=== PATIENT | female | born 1990 | race Caucasian/White ===

== ENCOUNTER → 2016-06-19 | Outpatient (CLI) | payer OTHER | LOC: LAB.O 14:16 | PROVIDERS: ATTEND Internal Medicine Endocrinology, Diabetes & Metabolism | DX: E10.29 Type 1 diabetes mellitus with other diabetic kidney complication (principal); E10.40 Type 1 diabetes mellitus with diabetic neuropathy, unspecified; E03.9 Hypothyroidism, unspecified ==

== ENCOUNTER 2017-02-08 17:00 | Emergency (ER) | payer MEDICAID, OTHER ==
--- NOTE | 2017-02-08 17:07 | ED.PDOC ---
History of Present Illness - General Chief Complaint: General Stated Complaint: nausea/vomiting Time Seen by Provider: 02/08/17 17:06 Source: patient, EMS notes reviewed Exam Limitations: no limitations - History of Present Illness Initial Comments: Mary Fernando 26 y/o female with history of DM 1 stated that she had multiple episodes of nausea and vomiting since this am and on arrival at [facility] it subsided .She is on long acting and regular insulin for her diabetes.EMS called and glucose accucheck reading showed high Timing/Duration: 4-6 hours Severity: moderate Improving Factors: nothing Worsening Factors: eating Associated Symptoms: nausea/vomiting Allergies/Adverse Reactions: Allergies Aspirin Allergy (Verified 03/21/13 15:22) Diphenhydramine [From Benadryl] Allergy (Verified 03/21/13 14:47) Home Medications: Ambulatory Orders Insulin Regular (Human) [Novolin R] 01/08/15 Novolin 70/30 (70-30) 100 Unit/ml 01/08/15 Ondansetron Tab [Zofran Tab] 4 mg PO BID PRN #8 tab 01/08/15 Review of Systems - Review of Systems Constitutional: States: no symptoms reported EENTM: States: no symptoms reported Respiratory: States: no symptoms reported Cardiology: States: no symptoms reported Gastrointestinal/Abdominal: States: see HPI Genitourinary: States: no symptoms reported Endocrine: States: see HPI Hematologic/Lymphatic: States: no symptoms reported Past Medical History (General) - Patient Medical History Hx Seizures: No Hx Stroke: No Hx Dementia: No Hx Asthma: No Hx of COPD: No Hx Cardiac Disorders: Yes - heart murmur Hx Congestive Heart Failure: No Hx Pacemaker: No Hx Hypertension: No Hx Thyroid Disease: No Hx Diabetes: Yes - type 1 Hx Renal Disease: No Hx Cancer: No Hx of HIV: No Hx Hepatitis C: No Hx MRSA: No Surgical History: other - ,BTL - Social History Hx Tobacco Use: No Hx Alcohol Use: No Hx Substance Use: No Hx Substance Use Treatment: No Hx Depression: Yes - history Hx Physical Abuse: No Hx Emotional Abuse: No - Female History Hx Last Menstrual Period: 02/01/17 Patient : No Family Medical History - Family History Mother Family History: Unknown Hx Family Diabetes: Yes - brother,cousin Physical Exam - Physical Exam General Appearance: Alert, No apparent distress Eye Exam: bilateral normal Ears, Nose, Throat: hearing grossly normal, normal ENT inspection, normal pharynx Neck: non-tender, supple Respiratory: lungs clear, normal breath sounds Cardiovascular/Chest: normal peripheral pulses, regular rate, rhythm, tachycardia - heart rate 123 Gastrointestinal/Abdominal: normal bowel sounds, non tender, soft, no organomegaly Extremity: normal inspection, no pedal edema, no calf tenderness Neurologic: no motor/sensory deficits, alert, oriented x 3 Progress - Progress Progress: 02/09/17 01:13 Vital Signs - 8 hr 02/08/17 02/08/17 02/08/17 19:26 20:00 20:30 Pulse Rate [ 124 H 118 H 108 H moniotr] Respiratory 20 20 Rate Blood Pressure 135/73 127/67 116/66 [Left Arm] 02/08/17 02/09/17 23:00 00:05 Pulse Rate [ 108 H 98 H moniotr] Respiratory 18 18 Rate Blood Pressure 134/80 114/57 [Left Arm] 02/09/17 01:14 No further nausea /vomiting since she was in the emergency room able to tolerate liquid and sandwich - Results/Orders Results/Orders: Laboratory Tests 02/08/17 02/08/17 02/08/17 17:13 17:13 17:13 WBC 7.7 RBC 5.04 Hgb 14.3 Hct 46.6 MCV 92.4 MCH 28.4 MCHC 30.7 L RDW 15.5 H Plt Count 248 MPV 11.8 H Absolute Neuts (auto) 5.80 Absolute Lymphs (auto) 1.30 Absolute Monos (auto) 0.50 Absolute Eos (auto) 0.00 Absolute Basos (auto) 0.10 Neutrophils % 74.6 Lymphocytes % 17.3 L Monocytes % 6.7 Eosinophils % 0.3 L Basophils % 1.1 Sodium 132 L Potassium 4.7 Chloride 94 L Carbon Dioxide 14 L* Anion Gap 28.7 H BUN 10 Creatinine 0.96 BUN/Creatinine Ratio 10.4 POC Glucose Random Glucose 666 H* Serum Osmolality 295.1 H Calcium 9.1 Total Bilirubin 1.3 H AST 23 ALT 19 Alkaline Phosphatase 107 Troponin I < 0.02 Serum Total Protein 7.3 Albumin 3.8 Globulin 3.5 Albumin/Globulin Ratio 1.1 Urine Color Urine Appearance Urine pH Ur Specific [place] Urine Protein Urine Glucose (UA) Urine Ketones Urine Blood Urine Nitrite Urine Bilirubin Urine Urobilinogen Ur Leukocyte Esterase Urine RBC Urine WBC Ur Epithelial Cells Urine Bacteria Urine HCG, Qual Urine Opiates Screen Urine Barbiturates Ur Phencyclidine Scrn U Amphetamin/Meth Scrn U Benzodiazepines Scrn U Cocaine Metab Screen U Cannabinoids Screen 02/08/17 02/08/17 02/08/17 17:18 17:35 17:35 WBC RBC Hgb Hct MCV MCH MCHC RDW Plt Count MPV Absolute Neuts (auto) Absolute Lymphs (auto) Absolute Monos (auto) Absolute Eos (auto) Absolute Basos (auto) Neutrophils % Lymphocytes % Monocytes % Eosinophils % Basophils % Sodium Potassium Chloride Carbon Dioxide Anion Gap BUN Creatinine BUN/Creatinine Ratio POC Glucose 400 H Random Glucose Serum Osmolality Calcium Total Bilirubin AST ALT Alkaline Phosphatase Troponin I Serum Total Protein Albumin Globulin Albumin/Globulin Ratio Urine Color Yellow Urine Appearance Clear Urine pH 5.0 Ur Specific [place] 1.010 Urine Protein Negative Urine Glucose (UA) >=1000 H Urine Ketones >=160 Urine Blood Small H Urine Nitrite Negative Urine Bilirubin Negative Urine Urobilinogen 0.2 Ur Leukocyte Esterase Negative Urine RBC 0-1 Urine WBC 1-3 Ur Epithelial Cells 1-3 Urine Bacteria 0 Urine HCG, Qual Negative Urine Opiates Screen Urine Barbiturates Ur Phencyclidine Scrn U Amphetamin/Meth Scrn U Benzodiazepines Scrn U Cocaine Metab Screen U Cannabinoids Screen 02/08/17 02/08/17 02/08/17 17:35 20:00 22:00 WBC RBC Hgb Hct MCV MCH MCHC RDW Plt Count MPV Absolute Neuts (auto) Absolute Lymphs (auto) Absolute Monos (auto) Absolute Eos (auto) Absolute Basos (auto) Neutrophils % Lymphocytes % Monocytes % Eosinophils % Basophils % Sodium 134 L Potassium 3.8 Chloride 103 Carbon Dioxide 11 L* Anion Gap 23.8 H BUN 7 Creatinine 0.74 BUN/Creatinine Ratio 9.5 L POC Glucose 290 H Random Glucose 398 H D Serum Osmolality 283.2 Calcium 8.5 Total Bilirubin AST ALT Alkaline Phosphatase Troponin I Serum Total Protein Albumin Globulin Albumin/Globulin Ratio Urine Color Urine Appearance Urine pH Ur Specific [place] Urine Protein Urine Glucose (UA) Urine Ketones Urine Blood Urine Nitrite Urine Bilirubin Urine Urobilinogen Ur Leukocyte Esterase Urine RBC Urine WBC Ur Epithelial Cells Urine Bacteria Urine HCG, Qual Urine Opiates Screen Negative Urine Barbiturates Negative Ur Phencyclidine Scrn Negative U Amphetamin/Meth Scrn Negative U Benzodiazepines Scrn Negative U Cocaine Metab Screen Negative U Cannabinoids Screen Negative 02/08/17 02/09/17 22:55 00:50 WBC RBC Hgb Hct MCV MCH MCHC RDW Plt Count MPV Absolute Neuts (auto) Absolute Lymphs (auto) Absolute Monos (auto) Absolute Eos (auto) Absolute Basos (auto) Neutrophils % Lymphocytes % Monocytes % Eosinophils % Basophils % Sodium 136 135 Potassium 3.4 L 3.1 L Chloride 106 107 Carbon Dioxide 20 L D 22 Anion Gap 13.4 9.1 L BUN 6 L 6 L Creatinine 0.61 0.51 L BUN/Creatinine Ratio 9.8 L 11.8 POC Glucose Random Glucose 292 H 235 H Serum Osmolality 280.3 275.3 Calcium 8.6 8.3 L Total Bilirubin AST ALT Alkaline Phosphatase Troponin I Serum Total Protein Albumin Globulin Albumin/Globulin Ratio Urine Color Urine Appearance Urine pH Ur Specific [place] Urine Protein Urine Glucose (UA) Urine Ketones Urine Blood Urine Nitrite Urine Bilirubin Urine Urobilinogen Ur Leukocyte Esterase Urine RBC Urine WBC Ur Epithelial Cells Urine Bacteria Urine HCG, Qual Urine Opiates Screen Urine Barbiturates Ur Phencyclidine Scrn U Amphetamin/Meth Scrn U Benzodiazepines Scrn U Cocaine Metab Screen U Cannabinoids Screen - EKG/XRAY/CT EKG: Sinus, Tachy, no ST T wave changes Comments: heart rate 125;left atrial enlargement Departure - Departure Clinical Impression: Ketoacidosis, diabetic, no coma, insulin dependent Time of Disposition: :17 Disposition: Discharge to Home or Self Care Condition: Good Departure Forms: ED Discharge - Pt. Copy, Patient Portal Self Enrollment Instructions: DI for Diabetic Ketoacidosis, Diabetic Ketoacidosis Diet: diabetic diet Referrals: Kannan Saucedo MD [Primary Care Provider] - 1-2 Weeks Home Medications: Ambulatory Orders Insulin Regular (Human) [Novolin R] 01/08/15 Novolin 70/30 (70-30) 100 Unit/ml 01/08/15 Ondansetron Tab [Zofran Tab] 4 mg PO BID PRN #8 tab 01/08/15 Additional Instructions: Continue with insulin regimen;Return to emergency room as needed
[2017-02-08 17:15] VITALS: TEMP 99.1; O2SAT 98
[2017-02-08] MEDS ORDERED: SODIUM CHLORIDE 0.9% 1000ML 1,000 ML ONE (17:26)
[2017-02-08] MEDS: SODIUM CHLORIDE 0.9% 1000ML 1,000 ML IVS ONE (17:41)
[2017-02-08] MEDS: INSULIN, REG.(HUMAN) 100 U/ML VIAL IV ONE (18:13)
[2017-02-08] MEDS ORDERED: SODIUM CHL 0.9% 250ML (AVIVA) 250 ML IVPB ONE (18:49)
[2017-02-08] MEDS: INSULIN, REG.(HUMAN) 250 UNITS in SODIUM CHL 0.9% 250ML (AVIVA) 247.5 ML IVPB SCH ×2 (18:54)
[2017-02-08] MEDS: KCL 10 MEQ/D5 1/2NS 1,000 ML IVS PRN (18:59)
[2017-02-08] MEDS: ACETAMINOPHEN 500 MG TAB PO ONE (19:18)
[2017-02-08] MEDS: ONDANSETRON ODT 8 MG TAB SL ONE (21:34)
[2017-02-08] MEDS: INSULIN,ISOP(HUMAN(NPH) 100 UNITS/ML PEN SUBCU ONE (23:34)
[2017-02-08] MEDS: POTASSIUM CHLORIDE 20 MEQ TAB PO ONE (23:34)
[2017-02-08] MEDS: DEX 5% W/NACL 0.45% 1000ML 1,000 ML IVS PRN (23:35)
[2017-02-09 01:30] VITALS: BP 115/66
== END 2017-02-09 01:30 | disposition home or self-care (01) ==
LOC: ER 17:00
DX: E10.10 Type 1 diabetes mellitus with ketoacidosis without coma (principal); R01.1 Cardiac murmur, unspecified; Z79.4 Long term (current) use of insulin; Z88.6 Allergy status to analgesic agent; Z88.8 Allergy status to other drugs, medicaments and biological substances; I51.7 Cardiomegaly
CPT/HCPCS: 36415; 36416; 80048; 80053; 80307; 81001; 81025; 82948; 84484; 85025; 93005; J1815; J7030; J7799

== ENCOUNTER 2017-02-09 12:04 | Inpatient (IN) | payer MEDICAID ==
--- NOTE | 2017-02-09 12:26 | ED.PDOC ---
History of Present Illness - General Chief Complaint: Diabetic Complaint Stated Complaint: HIGH BLOOD SUGAR AT HOME, SEEN LAST NIGHT FOR SAME Time Seen by Provider: 02/09/17 12:06 Source: patient, RN notes reviewed, Vital Signs reviewed Exam Limitations: no limitations - History of Present Illness Initial Comments: Patient returns to ER with c/o high blood sugar and not feeling well. She was in the ER last night with the same complaints and was discharged @ ~01:30 this morning. Prior to her discharge she was given both her long acting and immediate release insulin. Reports she started feeling bad again about 11am. She did not take any insulin because her sister took it with her to [place]. She reports she has not been on her long acting insulin for the past 6 months due to financial issues and has just been controlling her blood sugar by buying generic insulin. She is c/o headache, neck pain and upper back pain but reports this is typical for when her blood sugar is elevated. Timing/Duration: 1-3 hours Severity: moderate Improving Factors: medication - insulin but has not taken any Worsening Factors: nothing Associated Symptoms: headaches, malaise, weakness Allergies/Adverse Reactions: Allergies Aspirin Allergy (Verified 02/09/17 12:07) Diphenhydramine [From Benadryl] Allergy (Verified 02/09/17 12:07) Home Medications: Ambulatory Orders Insulin Regular (Human) [Novolin R] 01/08/15 Novolin 70/30 (70-30) 100 Unit/ml 01/08/15 Ondansetron Tab [Zofran Tab] 4 mg PO BID PRN #8 tab 01/08/15 Review of Systems - Review of Systems Constitutional: States: malaise, weakness. Denies: chills, fever EENTM: States: no symptoms reported Respiratory: States: no symptoms reported Cardiology: States: palpitations Gastrointestinal/Abdominal: States: no symptoms reported Musculoskeletal: States: see HPI, back pain, neck pain Skin: States: no symptoms reported Neurological: States: see HPI, headache Endocrine: States: no symptoms reported All other Systems: No Change from Baseline Past Medical History (General) - Patient Medical History Hx Seizures: No Hx Stroke: No Hx Dementia: No Hx Asthma: No Hx of COPD: No Hx Cardiac Disorders: No Hx Congestive Heart Failure: No Hx Pacemaker: No Hx Hypertension: No Hx Thyroid Disease: No Hx Diabetes: Yes - INSULIN DEPENDENT Hx Gastroesophageal Reflux: No Hx Renal Disease: No Hx Cancer: No Hx of HIV: No Hx Hepatitis C: No Hx MRSA: No - Vaccination History Hx Tetanus, Diphtheria Vaccination: Yes Hx Influenza Vaccination: No Hx Pneumococcal Vaccination: No Immunizations Up to Date: No - Social History Hx Tobacco Use: No Hx Chewing Tobacco Use: No Hx Alcohol Use: No Hx Substance Use: No Hx Substance Use Treatment: No Hx Depression: No Feels Threatened In Home Enviroment: No Feels Threatened In a Relationship: No Hx Physical Abuse: No Hx Emotional Abuse: No Hx Suspected Abuse: No - Female History Patient is a Female of Child Bearing Age (10 -59 yrs old): Yes Hx Last Menstrual Period: 02/01/17 Patient : No Expected Date of Delivery:: 09/05/15 Family Medical History - Family History Mother Family History: Unknown Living Status: Unknown Hx Family Asthma: No Hx Family Diabetes: Yes - brother,cousin Physical Exam - Physical Exam General Appearance: Alert, Comfortable, No apparent distress, Well Developed, Well Groomed, Well Hydrated, Well Nourished Neck: supple, normal inspection Respiratory: lungs clear, normal breath sounds, no respiratory distress, no accessory muscle use Cardiovascular/Chest: regular rate, rhythm, no gallop, no murmur Gastrointestinal/Abdominal: normal bowel sounds, soft, no organomegaly, no pulsatile mass, tenderness - Mild, diffuse tenderness w/o guarding or rebound Extremity: normal range of motion, normal inspection Neurologic: alert, normal mood/affect, oriented x 3 Skin Exam: normal color, warm/dry Comments: Vital Signs 02/09/17 12:07 Temperature 99.2 F Pulse Rate [ 130 H Left Superficial Temporal] Respiratory 22 Rate Blood Pressure 125/75 [Left Arm] O2 Sat by Pulse 100 Oximetry Progress - Progress Progress: 02/09/17 14:34 Discussed patient with Suzette Nova NP - will admit to hospital for DKA - Results/Orders Results/Orders: Laboratory Tests 02/09/17 02/09/17 02/09/17 11:55 11:55 13:48 Sodium 135 Potassium 4.9 Chloride 99 L Carbon Dioxide 13 L* D Anion Gap 27.9 H BUN 8 Creatinine 0.85 BUN/Creatinine Ratio 9.4 L POC Glucose > 400 H* D Random Glucose 532 H* Cancelled Serum Osmolality 292.5 Calcium 9.4 Serum Ketones Small 02/09/17 13:53 Sodium 133 L Potassium 5.2 H Chloride 100 L Carbon Dioxide 8 L* D Anion Gap 30.2 H BUN 8 Creatinine 0.99 BUN/Creatinine Ratio 8.1 L POC Glucose Random Glucose 603 H* Serum Osmolality 292.9 Calcium 9.1 Serum Ketones Departure - Departure Clinical Impression: Ketoacidosis, diabetic, no coma, insulin dependent Time of Disposition: 14:34 Disposition: Admit Patient Condition: Poor Departure Forms: ED Discharge - Pt. Copy, Patient Portal Self Enrollment Referrals: Kannan Saucedo MD [Primary Care Provider] - 1-2 Weeks Home Medications: Ambulatory Orders Insulin Regular (Human) [Novolin R] 01/08/15 Novolin 70/30 (70-30) 100 Unit/ml 01/08/15 Ondansetron Tab [Zofran Tab] 4 mg PO BID PRN #8 tab 01/08/15 Decision To Admit - Decistion To Admit Decision to Admit Reason: Admit from ER - DKA Decision to Admit Date: 02/09/17 Decision to Admit Time: 14:33
[2017-02-09] MEDS ORDERED: INSULIN, REG.(HUMAN) 100 U/ML VIAL IV ONE (12:43)
[2017-02-09] MEDS ORDERED: SODIUM CHLORIDE 0.9% 1000ML 1,000 ML IVS ONE ×2 (12:44→16:06)
[2017-02-09] MEDS ORDERED: SODIUM CHL 0.9% 250ML (AVIVA) 250 ML IVPB ONE (12:51)
[2017-02-09] MEDS ORDERED: INSULIN, REG.(HUMAN) 100 U/ML VIAL ONE (12:52)
[2017-02-09] MEDS ORDERED: INSULIN, REG.(HUMAN) 250 UNITS in SODIUM CHL 0.9% 250ML (AVIVA) 247.5 ML IVPB SCH ×2 (13:00)
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
[2017-02-09] MEDS ORDERED: KCL 20 MEQ/NS 1,000 ML IVS PRN (17:22)
[2017-02-09] MEDS ORDERED: ACETAMINOPHEN 325 MG TAB PO PRN (17:22)
[2017-02-09] MEDS ORDERED: ACETAMINOPHEN SUPPOSITORY 650 MG PR PRN (17:22)
[2017-02-09] MEDS ORDERED: SODIUM CHLORIDE 0.9% (FLUSH) 10 ML SYG IV PRN (17:22)
[2017-02-09] MEDS ORDERED: IV SET AND CAP CHANGE INJ INJ SCH (17:30)
[2017-02-09] MEDS ORDERED: PANTOPRAZOLE SODIUM IV 40 MG VIAL IV SCH (17:30)
[2017-02-09] MEDS ORDERED: KCL 20MEQ/0.45% NS 1,000 ML IVS PRN (18:15)
[2017-02-09] MEDS ORDERED: KCL 20MEQ/0.45% NS 1,000 ML IVS ONE (18:32)
[2017-02-09] MEDS: INSULIN, REG.(HUMAN) 250 UNITS in SODIUM CHL 0.9% 250ML (AVIVA) 247.5 ML IVPB SCH ×2 (18:44)
[2017-02-09] MEDS ORDERED: KCL 20MEQ/D5 1/2NS 1,000 ML IVS ONE (19:39)
[2017-02-09] MEDS ORDERED: KCL 20MEQ/D5 1/2NS 1,000 ML IVS PRN (19:40)
[2017-02-09] MEDS ORDERED: MAGNESIUM SULFATE PREMIX 2GM 2 GM in PREMIX BAG 1 BAG IVPB ONE (19:41)
[2017-02-09] MEDS ORDERED: MAGNESIUM SULFATE PREMIX 2GM 50 ML IVPB ONE (20:12)
[2017-02-09] MEDS: SODIUM CHLORIDE 0.9% 1000ML 1,000 ML IVS PRN ×3 (21:05→23:55)
[2017-02-09] MEDS: ONDANSETRON INJ 4 MG/2 ML VIAL IV PRN (21:40)
[2017-02-09] MEDS ORDERED: DEXTROSE 50% 25 GM/50 ML SYG IV PRN (23:37)
[2017-02-09] MEDS ORDERED: GLUCAGON INJ 1 MG VIAL SUBCU PRN (23:37)
[2017-02-09] MEDS: HYDROcodone 5MG/APAP 325MG 1 EA TAB PO PRN (23:56)
[2017-02-09] MEDS: INSULIN LISPRO 100 UNITS/ML PEN SUBCU SCH (23:58)
[2017-02-10] MEDS: INSULIN LISPRO 100 UNITS/ML PEN SUBCU SCH ×6 (01:37→20:02)
[2017-02-10] MEDS: ONDANSETRON INJ 4 MG/2 ML VIAL IV PRN (03:23)
[2017-02-10] MEDS: HYDROcodone 5MG/APAP 325MG 1 EA TAB PO PRN (03:47)
[2017-02-10] MEDS ORDERED: KCL 20 MEQ/NS 1,000 ML IVS ONE (04:07)
[2017-02-10] MEDS ORDERED: KCL 20 MEQ/NS 1,000 ML IVS PRN (04:09)
[2017-02-10] MEDS ORDERED: PROMETHAZINE HCL INJ 25 MG/ML VIAL ONE (06:48)
[2017-02-10] MEDS ORDERED: SODIUM CHLORIDE 0.9% 50ML 50 ML ONE (06:48)
[2017-02-10] MEDS ORDERED: PROMETHAZINE HCL INJ 25 MG in SODIUM CHLORIDE 0.9% 50ML 50 ML IVPB PRN (06:49)
[2017-02-10] MEDS: PROMETHAZINE HCL INJ 25 MG in SODIUM CHLORIDE 0.9% 50ML 50 ML IVPB PRN (06:53)
[2017-02-10] MEDS ORDERED: INSULIN, REG.(HUMAN) 100 U/ML VIAL ONE ×3 (06:53→19:32)
[2017-02-10] MEDS ORDERED: SODIUM CHL 0.9% 250ML (AVIVA) 250 ML IVPB ONE ×3 (06:53→19:32)
[2017-02-10] MEDS: SODIUM CHLORIDE 0.9% 1000ML 1,000 ML IVS PRN ×9 (06:54→20:39)
--- NOTE | 2017-02-10 07:04 | PCM.CORE ---
Physician DVT/VTE - Prophylaxis Currently: Patient already on anticoagulation therapy - Nurse DVT Assessment & Total Each Risk Factor is 1 Point: Obesity (BMI >25) DVT Assessment Score: 1 - 0-1 Low Risk Treatments: Early Ambulation, Low Risk no further treatment or intervention needed - 2 Moderate Risk Treatments: Sequential Compression Device
[2017-02-10] MEDS: INSULIN, REG.(HUMAN) 250 UNITS in SODIUM CHL 0.9% 250ML (AVIVA) 247.5 ML IVPB SCH ×6 (07:19→19:47)
[2017-02-10] MEDS ORDERED: ENOXAPARIN SODIUM 40 MG/0.4 ML SYG SUBCU SCH (07:30)
[2017-02-10] MEDS ORDERED: KCL 20MEQ/0.45% NS 1,000 ML IVS PRN (09:50)
--- NOTE | 2017-02-10 11:30 | PN ---
SUPERVISING PHYSICIAN: Javad Beltran MD DATE: 02/10/17 SUBJECTIVE: The patient is lying in her hospital bed. She continues to be lethargic. Her mother is at the bedside. Earlier this morning, she was awake and alert and asking for something to drink. She did have one bout of vomiting with it. She does continue to have complaints of nausea at times, but otherwise the patient has been mostly sleeping. OBJECTIVE: VITAL SIGNS: Afebrile. Heart rate 123. Blood pressure 120/79. Respiratory rate 30. O2 saturation 100% on room air. LUNGS: She is tachypneic, but her lungs clear to auscultation bilaterally. CARDIAC: Tachycardic rate and regular rhythm. ABDOMEN: Soft, nondistended, nontender. Bowel sounds are positive. EXTREMITIES: There is a trace amount of edema to her bilateral lower extremities. NEUROLOGIC: She is lethargic. She opens her eyes. She can answer some simple questions appropriately and she is oriented times 3 when she does awaken. LABORATORY: WBC 14.1, hemoglobin 13.4, hematocrit 43.3, neutrophils 88.3%. Overnight, her sodium was 137 and her carbon dioxide did get up as high as 12, but it is back down to 5 at this time. Glucoses run between 494 and now 252. She shows a moderate amount of serum ketones. Magnesium 1.9. All other labs and films have been reviewed via the EMR. ASSESSMENT: 1. Diabetic ketoacidosis. 2. Diabetes mellitus, type 1. 3. Decreased level of consciousness, most likely due to #1. 4. Dehydration related to #1. 5. Electrolyte imbalanced related to #1. PLAN: We will continue on present supportive care. She will continue to get multiple boluses of fluids as well as staying on the insulin drip until her ketones normalize and her heart rate comes down. I have spoken to the patient' s mother at length about her living situation and our school library media program director, Bella Begum, is going to discuss some options with her. We will continue with the q.4h. BMPs with serum ketones. Hopefully in the next 24 hours we can get her off the insulin drip. At some point, I would like to get her started back on her long-acting insulin. The mother also let me know that she has a recent history of an ulcer, so she will need followup with a GI doctor. I will also send her home on some Protonix until she can get into a GI physician. Otherwise , we will continue to monitor the patient closely and follow as needed. Dr. Beltran is the collaborating physician and available for consultation. [facility][id number] [facility]
[2017-02-10] MEDS ORDERED: KCL 20MEQ/D5 1/2NS 1,000 ML IVS ONE (13:11)
[2017-02-10] MEDS: KCL 20MEQ/D5 1/2NS 1,000 ML IVS PRN ×3 (13:16→23:49)
[2017-02-10] MEDS ORDERED: PANTOPRAZOLE SODIUM IV 40 MG VIAL ONE (19:32)
[2017-02-10] MEDS: PANTOPRAZOLE SODIUM IV 40 MG VIAL IV SCH (20:01)
[2017-02-11] MEDS ORDERED: SODIUM CHL 0.9% 250ML (AVIVA) 250 ML IVPB ONE (07:06)
[2017-02-11] MEDS ORDERED: INSULIN, REG.(HUMAN) 100 U/ML VIAL ONE (07:07)
[2017-02-11] MEDS: INSULIN, REG.(HUMAN) 250 UNITS in SODIUM CHL 0.9% 250ML (AVIVA) 247.5 ML IVPB SCH ×2 (07:11)
[2017-02-11] MEDS: KCL 20MEQ/D5 1/2NS 1,000 ML IVS PRN (07:13)
[2017-02-11] MEDS: HYDROcodone 5MG/APAP 325MG 1 EA TAB PO PRN ×2 (07:15→12:52)
[2017-02-11] MEDS: INSULIN LISPRO 100 UNITS/ML PEN SUBCU SCH ×4 (08:17→20:24)
[2017-02-11] MEDS: ENOXAPARIN SODIUM 40 MG/0.4 ML SYG SUBCU SCH (09:10)
[2017-02-11] MEDS ORDERED: INSULIN DETEMIR 100 UNITS/ML PEN SUBCU ONE (10:52)
[2017-02-11] MEDS ORDERED: FUROSEMIDE INJ 20 MG/2 ML VIAL IV ONE (10:56)
[2017-02-11] MEDS: ESCITALOPRAM 10 MG TAB PO SCH (11:49)
[2017-02-11] MEDS ORDERED: POTASSIUM CHLORIDE 20 MEQ TAB ONE (11:53)
--- NOTE | 2017-02-11 12:02 | PN ---
SUPERVISING PHYSICIAN: Javad Beltran MD DATE: 02/11/17 SUBJECTIVE: The patient is sitting up in bed. She is much more alert and responsive today. She denies any shortness of breath, nausea, vomiting, or chest pain. She complains of some puffiness, especially in her hands and feet. OBJECTIVE: VITAL SIGNS: Afebrile. Heart rate 105. Blood pressure 131/85. Respiratory rate 18. O2 saturation 99% on room air. HEENT: Oropharynx is clear. Oral mucous membranes are moist. She does have quite a bit of eyelid edema. LUNGS: Clear to auscultation bilaterally. There are a few scattered crackles in the upper right lobe, but very minimal. ABDOMEN: Soft, nondistended, nontender. Bowel sounds are positive. EXTREMITIES: She does have +1 edema to both her hands and her feet bilaterally. Pulses are palpable and strong at +2. NEUROLOGIC: Awake, alert and oriented times three. LABORATORY: WBC down to 8.8, hemoglobin 12.1, hematocrit 37.4. Neutrophils normal at 76.5%. Blood sugars while on the insulin drip over the last 24 hours have been as high as 233, but for the most part in the last 12 hours have been 130s to 150s. Chemistries show sodium 135, potassium 3.3, chloride 111, carbon dioxide is 18, up from 13 yesterday afternoon. Creatinine 0.59, BUN less than 5. Random glucose on chemistries today was 125. Serum osmolality 267.8. Calcium 7.9. Serum ketones at 9:25 this morning are negative. Throughout the night, there was a small amount. All other labs and films have been reviewed via the EMR. ASSESSMENT: 1. Diabetic ketoacidosis on admission, now resolved. 2. Diabetes mellitus, type 1, poorly controlled with hemoglobin A1c of 12.1. 3. Decreased level of consciousness, most likely due to diabetic ketoacidosis that is now resolved. 4. Dehydration related to diabetic ketoacidosis, now resolved. 5. Electrolyte imbalanced related to diabetic ketoacidosis. She continues with some hypokalemia and hypomagnesemia that will be corrected. 6. History of depression. PLAN: We will continue present supportive care. Since her ketones are negative , I have discontinued her insulin drip. She will be placed on q.4h. sliding scale insulin. I have given her her usual dose of long-acting insulin, which is 42 units and that will be started routine tomorrow evening. Her IV fluids have been discontinued. I will repeat magnesium from this morning as she has had magnesium replacements over the last couple of days, so I will check that again. I have given her some oral potassium as well as 20 mg of Lasix. We will also do bladder training this afternoon to try to get her catheter removed. I have started her on a low dose of Lexapro as she had been on that in the past and asked that be re-started. We will give her a couple of days of 10 mg of Lexapro and increase Lexapro to 20 mg on discharge. She will also need some Protonix on discharge due to previous history of gastric ulcer. I will order routine labs in the morning and at some point we will need to change her sliding scale to a.c. and h.s. Hopefully she can be discharged in the next day or two with her prescription of long-acting insulin, Protonix and Lexapro. Dr. Beltran is the collaborating physician and available for consultation. . #[id number] [facility]
[2017-02-11] MEDS: ONDANSETRON INJ 4 MG/2 ML VIAL IV PRN (16:59)
[2017-02-11] MEDS ORDERED: MAGNESIUM SULFATE PREMIX 2GM 2 GM in PREMIX BAG 1 BAG IVPB ONE (19:09)
[2017-02-11] MEDS ORDERED: MAGNESIUM SULFATE PREMIX 2GM 50 ML IVPB ONE (19:56)
[2017-02-11] MEDS ORDERED: SODIUM CHLORIDE 0.9% 50ML 50 ML ONE (21:54)
[2017-02-11] MEDS ORDERED: PROMETHAZINE HCL INJ 25 MG/ML VIAL ONE (21:54)
[2017-02-11] MEDS: PANTOPRAZOLE SODIUM IV 40 MG VIAL IV SCH (22:11)
[2017-02-11] MEDS: PROMETHAZINE HCL INJ 25 MG in SODIUM CHLORIDE 0.9% 50ML 50 ML IVPB PRN (22:12)
[2017-02-12] MEDS: INSULIN LISPRO 100 UNITS/ML PEN SUBCU SCH (01:01)
[2017-02-12] MEDS: ONDANSETRON INJ 4 MG/2 ML VIAL IV PRN (06:25)
[2017-02-12] MEDS: HYDROcodone 5MG/APAP 325MG 1 EA TAB PO PRN (06:25)
[2017-02-12] MEDS ORDERED: POTASSIUM CHLORIDE 20 MEQ TAB ONE ×2 (09:19→09:46)
[2017-02-12] MEDS: ESCITALOPRAM 10 MG TAB PO SCH (09:34)
[2017-02-12] MEDS: ENOXAPARIN SODIUM 40 MG/0.4 ML SYG SUBCU SCH (09:35)
[2017-02-12] MEDS ORDERED: POTASSIUM CHLORIDE 20 MEQ TAB PO ONE (10:52)
[2017-02-12 11:05] VITALS: O2SAT 96
[2017-02-12] MEDS ORDERED: PANTOPRAZOLE SODIUM TAB 40 MG PO SCH (11:30)
[2017-02-12] MEDS ORDERED: INSULIN LISPRO 100 UNITS/ML PEN SUBCU SCH (11:30)
[2017-02-12] MEDS ORDERED: FLUCONAZOLE 150 MG TAB PO ONE (12:05)
[2017-02-12 14:48] VITALS: BP 124/84; TEMP 97.3
[2017-02-12] MEDS ORDERED: INSULIN DETEMIR 100 UNITS/ML PEN SUBCU SCH ×2 (21:00)
--- NOTE | 2017-02-16 15:06 | DS ---
SUPERVISING PHYSICIAN: Javad Beltran MD DISCHARGE DIAGNOSIS: 1. Diabetic ketoacidosis on admission, resolved after IV fluids and diabetic ketoacidosis protocol with the patient showing to be stable. 2. Diabetes mellitus, type 1, poorly controlled with hemoglobin A1c of 12.1. 3. Decreased level of consciousness, most likely due to diabetic ketoacidosis, resolved with the patient back to baseline status mentally. 4. Dehydration related to diabetic ketoacidosis, resolved. 5. Electrolyte imbalanced related to diabetic ketoacidosis, improved with a mild hypokalemia at discharge requiring replacement orally, but stable. 6. History of depression. 7. Urinary tract infection, unknown etiology, with the patient having an indwelling Ferrell catheter placed at time of admission with the patient stated on antibiotics at time of discharge. 8. Yeast infection secondary to uncontrolled diabetes, treated with Diflucan. HISTORY OF PRESENT ILLNESS: Ms. Fernando is a 26 year-old female patient who was in the [place] [facility] the night prior to admission on . She came in for some abdominal discomfort and elevated blood sugar. Her symptoms subsided initially in the Emergency Room and she was discharged about 1:30 in the morning. At home, she progressively got worse and decided to come back to the Emergency Room for elevated blood sugars. She had not taken her insulin as her sister had taken it with her to [place] and in fact she has not taken her long-acting insulin for about 6 or 7 months because of some financial issues, and was just using regular insulin that she got at the pharmacy to control her blood sugars. In the Emergency Room when she initially came in, her sodium was 135, potassium 4.9, chloride 99, carbon dioxide 13, BUN 8, creatinine 0.85 and glucose was 532. She was given some insulin and some fluids, and her next chemistry showed carbon dioxide that was at 8 with glucose 603. At approximately 3:45 the afternoon of admission, her carbon dioxide went down to 7 and her glucose was 467. She also had some trace serum ketones and she was placed on an insulin drip, given 2 liters of fluids and admitted to the Medical/Surgical Floor for continuation of treatment of underlying diabetic ketoacidosis. LABORATORY: WBCs on admission showed leukocytosis 14.1, most likely secondary to dehydration from diabetic ketoacidosis. After fluids, this improved and at discharge, her white count had normalized to 6.0. Hemoglobin was 12.5, hematocrit 38.6 at discharge. Platelet count within normal limits at 204,000. Differential did initially showed a left shift. This resolved prior to discharge. Chemistries were taken as per protocol for diabetic ketoacidosis. Initially, electrolytes on admission showed sodium 134, potassium 4.9, carbon dioxide 13, anion gap was 27.9, glucose 532, serum osmolality 292, calcium 9.4, magnesium low at 1.6. After replacement and correction, at discharge, magnesium was 1.8. Blood sugar did maximize to 603 and after further treatment with diabetic ketoacidosis protocol with fluids, her anion gap normalized on , approximately 24 hours after treatment, it was 16. At discharge, anion gap was 10.9. Maximum anion gap during admission was 30.2. Carbon dioxide normalized as well. On 02/10/17, it was 15 and at discharge was normal at 23. Lowest carbon dioxide during admission was 4. Potassium maximized to level of 6.1, however, it normalized after treatment and did drop and was at 2.9 at discharge requiring some oral replacement, but was stable. Sodium normalized and at discharge was 140. Hemoglobin A1c was 12.1. Calcium level at admission was 9.4 and at discharge was 8.4. BUN at admission was 8, at discharge was less than 5, creatinine was within normal limits at admission was 0.85 and at discharge was at 0.57. Initial urinalysis showed 500 glucose, small amount of blood with 3 to 5 red blood cells, 1 to 3 epithelials and 1+ budding yeast with rare bacteria. Prior to discharge, repeat urinalysis showed a small amount of blood with a moderate leukocyte esterase with 3 to 5 red blood cells, 30 to 40 white blood cells, 2+ bacteria, 2+ budding yeast. Toxicology screen initially on admission showed moderate serum ketones prior to discharge on 02/12/17. On 02/11/17, she had normalized and her ketones had become negative. MICROBIOLOGY: Urine culture was pending at time of discharge. No additional laboratory or radiographic studies were available for review. HOSPITAL COURSE: Ms. Fernando was admitted as noted above for diabetic ketoacidosis from the Emergency Room. She was started on diabetic ketoacidosis protocol. She progressed well through treatment with diabetic ketoacidosis protocol and was transitioned to an oral diet which she was tolerating well before discharge. She was having no nausea or vomiting . She was hemodynamically stable. Vital signs at discharge showed temperature 97.3, pulse 98, blood pressure 124/84, respirations 16, saturation 98% on room air. Ferrell catheter was removed on the morning of discharge and it was noted that repeat urinalysis appeared to be a underlying urinary tract infection with a yeast infection as well. She was treated with Diflucan and started on antibiotics prior to discharge with continuation of treatment in outpatient setting. The patient had clinically improved well enough and was felt stable enough to be discharge to continue with treatment plan in the outpatient setting and to have followup with her registered nurse renal in the near future. PLAN: Ms. Fernando was discharged on 02/12/17 with instructions to followup with Dr. Kannan Saucedo, her registered nurse renal in [place], [place], on 02/16/17 at 8 o'clock in the morning. She was to resume her home medications as instructed and insulins provided were Levemir and a short-acting Novolin R with a sliding scale. She was to utilize sliding scale a.c. as well as long-acting insulin and to monitor her blood sugars and keep a log and continue with diabetic diet as tolerated. She was to return to the hospital should she have any worsening symptoms or other concerning symptoms. At discharge, she was given prescriptions for: 1. Cephalexin 500 mg twice daily, #20, for underlying urinary tract infection. 2. Lexapro 10 mg daily, #30. 3. Levemir 36 units subcutaneously at bedtime, 1 pen, 1 refill. 4. Novolin R subsequently with meals per sliding scale. 5. Zofran 4 mg q.4h. as needed, #10. 6. Protonix 40 mg daily, #30. She was given a sliding scale as per hospital protocol and to follow that until she was seen in followup with Dr. Saucedo. She was to call the hospital should she have any questions in regards to treatment. Diet was diabetic diet, 1800 calorie as tolerated. Activity to increase as tolerated. Condition at discharge was stable and improved. #[id number] [facility]
== END 2017-02-12 12:35 | disposition home or self-care (01) | DRG 639 ==
LOC: ER 12:04 → MS 17:14
PROVIDERS: ADMIT Nurse Practitioner Acute Care; ATTEND Nurse Practitioner Family
DX: E10.10 Type 1 diabetes mellitus with ketoacidosis without coma (principal); E86.0 Dehydration; E03.9 Hypothyroidism, unspecified; R01.1 Cardiac murmur, unspecified; E87.6 Hypokalemia; E83.42 Hypomagnesemia; K25.9 Gastric ulcer, unspecified as acute or chronic, without hemorrhage or perforation; T38.3X6A Underdosing of insulin and oral hypoglycemic [antidiabetic] drugs, initial encounter; Z91.120 Patient's intentional underdosing of medication regimen due to financial hardship; Y92.9 Unspecified place or not applicable; Z87.891 Personal history of nicotine dependence; Z88.6 Allergy status to analgesic agent; Z88.8 Allergy status to other drugs, medicaments and biological substances

== ENCOUNTER 2018-08-14 08:48 | Emergency (ER) | payer SELFPAY ==
[2018-08-14 09:04] VITALS: BP 120/68; O2SAT 98
--- NOTE | 2018-08-14 09:07 | ED.PDOC ---
History of Present Illness - General Chief Complaint: Diabetic Complaint Stated Complaint: headache, uncontrolled glucose Time Seen by Provider: 08/14/18 09:05 Source: patient Exam Limitations: no limitations - History of Present Illness Initial Comments: Mary Fernando 27 y/o female with DM1 came to ER stating her Humulin-R ran out which she uses for her insulin regimen as well as glucose strip she came to ER get her blood sugar checked.FSBS here at ER showed -289 mg/dl.Stated lost her job and unable to get back to her prescription.Had also been having on and off dull headache for the last 2 months felt like worse to day.Denies nausea/vomiting diarrhea,blurry vision.Patient on insulin pump and stated functioning. Timing/Duration: 24 hours Severity: moderate Improving Factors: nothing Worsening Factors: nothing Associated Symptoms: other - see hpi Allergies/Adverse Reactions: Allergies Aspirin Allergy (Verified 02/09/17 12:07) Diphenhydramine [From Benadryl] Allergy (Verified 02/09/17 12:07) Home Medications: Ambulatory Orders Insulin Regular (Human) [Novolin R] 0 unit SUBCU AC #1 bottle 02/12/17 Tramadol HCl 50 mg PO TID PRN #10 tab 08/14/18 Review of Systems - Review of Systems Constitutional: States: no symptoms reported EENTM: States: no symptoms reported Respiratory: States: no symptoms reported Cardiology: States: no symptoms reported Gastrointestinal/Abdominal: States: no symptoms reported Genitourinary: States: no symptoms reported Musculoskeletal: States: no symptoms reported Skin: States: no symptoms reported Neurological: States: see HPI, headache All other Systems: Reviewed and Negative, No Change from Baseline Past Medical History (General) - Patient Medical History Hx Seizures: No Hx Stroke: No Hx Dementia: No Hx Asthma: No Hx of COPD: No Hx Cardiac Disorders: Yes - heart murmur Hx Congestive Heart Failure: No Hx Pacemaker: No Hx Hypertension: No Hx Thyroid Disease: No Hx Diabetes: Yes - INSULIN DEPENDM 1, insulin dependent Hx Gastroesophageal Reflux: No Hx Renal Disease: No Hx Cancer: No Hx of HIV: No Hx Hepatitis C: No Hx MRSA: No Surgical History: other - Vaccination History Hx Tetanus, Diphtheria Vaccination: Yes - unkown year Hx Influenza Vaccination: No Hx Pneumococcal Vaccination: No - Social History Hx Tobacco Use: No Hx Chewing Tobacco Use: No Hx Alcohol Use: No Hx Substance Use: No Hx Substance Use Treatment: No Hx Depression: No Hx Physical Abuse: No Hx Emotional Abuse: No Hx Suspected Abuse: No - Female History Patient is a Female of Child Bearing Age (10 -59 yrs old): Yes Hx Last Menstrual Period: 07/15/18 Patient : No Family Medical History - Family History Mother Family History: Unknown Living Status: Unknown Hx Family Asthma: No Hx Family Diabetes: Yes - brother,cousin Physical Exam - Physical Exam General Appearance: Alert, Comfortable, No apparent distress Eye Exam: bilateral normal Ears, Nose, Throat: hearing grossly normal, normal ENT inspection, normal pharynx Neck: non-tender, full range of motion, supple, normal inspection Respiratory: chest non-tender, lungs clear, normal breath sounds, no respiratory distress Cardiovascular/Chest: normal peripheral pulses, regular rate, rhythm, no murmur Peripheral Pulses: radial,right: 2+, radial,left: 2+ Gastrointestinal/Abdominal: normal bowel sounds, non tender, soft, no organomegaly Back Exam: normal inspection, no CVA tenderness, no vertebral tenderness Extremity: no pedal edema, no calf tenderness Neurologic: alert, oriented x 3 Skin Exam: normal color, warm/dry Lymphatic: no adenopathy Progress - Progress Progress: 08/14/18 09:28 Vital Signs - 8 hr 08/14/18 09:00 Temperature 98.3 F Pulse Rate [ 103 H left brachial] Respiratory 16 Rate Blood Pressure 120/68 [left brachial] O2 Sat by Pulse 98 Oximetry - Results/Orders Results/Orders: 08/14/18 09:28 Insulin, Reg.(Human) [HumuLIN R] 5 units SUBCU ONCE ONE Laboratory Results - last 24 hr 08/14/18 08:55 POC Glucose 289 H Departure - Departure Clinical Impression: Hyperglycemia due to type 1 diabetes mellitus Time of Disposition: 09:33 Disposition: Discharge to Home or Self Care Condition: Fair Departure Forms: ED Discharge - Pt. Copy, Patient Portal Self Enrollment Instructions: DI for Diabetes Type 1 -- Adult Prescriptions: Tramadol HCl 50 mg PO TID PRN #10 tab PRN Reason: Headache Or Mild Pain Home Medications: Ambulatory Orders Insulin Regular (Human) [Novolin R] 0 unit SUBCU AC #1 bottle 02/12/17 Tramadol HCl 50 mg PO TID PRN #10 tab 08/14/18 Additional Instructions: follow up with primary Md 16 August 2018 for recheck;Return to ER as needed
[2018-08-14 09:28] VITALS: TEMP 98.3
[2018-08-14] MEDS: INSULIN, REG.(HUMAN) 100 U/ML VIAL SUBCU ONE (09:36)
[2018-08-14] MEDS: NAPROXEN 250 MG TAB PO ONE (09:41)
== END 2018-08-14 09:45 | disposition home or self-care (01) ==
LOC: ER 08:48
DX: E10.65 Type 1 diabetes mellitus with hyperglycemia (principal); R51 Headache; R01.1 Cardiac murmur, unspecified; Z79.4 Long term (current) use of insulin; Z88.6 Allergy status to analgesic agent; Z88.8 Allergy status to other drugs, medicaments and biological substances

== ENCOUNTER 2019-05-22 15:30 | Emergency (ER) | payer OTHER ==
[2019-05-22] MEDS ORDERED: ONDANSETRON INJ 4 MG/2 ML VIAL IV ONE (15:32)
[2019-05-22] MEDS ORDERED: SODIUM CHLORIDE 0.9% (FLUSH) 10 ML SYG IV PRN (15:32)
[2019-05-22] MEDS ORDERED: SODIUM CHLORIDE 0.9% 1000ML 1,000 ML IVS PRN (15:32)
--- NOTE | 2019-05-22 16:23 | RAD ---
EXAM DESCRIPTION: Chest,1 View CLINICAL HISTORY: 28 years Female, sob COMPARISON: 09/04/2010 TECHNIQUE: AP portable chest. FINDINGS: The lungs are hypoventilated, but are otherwise clear. No focal consolidation, significant pneumothorax or pleural effusion seen. The heart is normal in size. No acute osseous abnormality. IMPRESSION: No acute cardiopulmonary process. Electronically signed by: Loyd Camacho DO 05/22/2019 4:22 PM [facility]
[2019-05-22] MEDS ORDERED: INSULIN, REG.(HUMAN) 100 U/ML VIAL IV ONE (16:40)
[2019-05-22] MEDS ORDERED: SODIUM CHLORIDE 0.9% 1000ML 1,000 ML IVS ONE (16:40)
--- NOTE | 2019-05-22 16:44 | ED.PDOC ---
History of Present Illness - General Chief Complaint: Diabetic Complaint Stated Complaint: Elevated blood sugar Time Seen by Provider: 05/22/19 15:31 - History of Present Illness Initial Comments: c/o having high sugars and nausea and vomiting started since 1 day , h/o DKA multiple times with h/o hospitalization Timing/Duration: 24 hours Severity: moderate Improving Factors: nothing Worsening Factors: nothing Associated Symptoms: loss of appetite, nausea/vomiting Allergies/Adverse Reactions: Allergies Aspirin Allergy (Verified 02/09/17 12:07) Diphenhydramine [From Benadryl] Allergy (Verified 02/09/17 12:07) Home Medications: Ambulatory Orders Insulin Regular (Human) [Novolin R] 0 unit SUBCU AC #1 bottle 02/12/17 Tramadol HCl 50 mg PO TID PRN #10 tab 08/14/18 Review of Systems - Review of Systems Constitutional: States: no symptoms reported EENTM: States: no symptoms reported Respiratory: States: no symptoms reported Cardiology: States: no symptoms reported Gastrointestinal/Abdominal: States: see HPI Genitourinary: States: no symptoms reported Musculoskeletal: States: no symptoms reported Skin: States: no symptoms reported Neurological: States: no symptoms reported Endocrine: States: no symptoms reported Past Medical History (General) - Patient Medical History Hx Seizures: No Hx Stroke: No Hx Dementia: No Hx Asthma: No Hx of COPD: No Hx Cardiac Disorders: Yes - heart murmur Hx Congestive Heart Failure: No Hx Pacemaker: No Hx Hypertension: No Hx Thyroid Disease: Yes Hx Diabetes: Yes Hx Gastroesophageal Reflux: No Hx Renal Disease: No Hx Cancer: No Hx of HIV: No Hx Hepatitis C: No Hx MRSA: No Surgical History: other - Vaccination History Hx Tetanus, Diphtheria Vaccination: Yes - unkown year Hx Influenza Vaccination: No Hx Pneumococcal Vaccination: No - Social History Hx Tobacco Use: No Hx Chewing Tobacco Use: No Hx Alcohol Use: No Hx Substance Use: No Hx Substance Use Treatment: No Hx Depression: No Hx Physical Abuse: No Hx Emotional Abuse: No Hx Suspected Abuse: No - Female History Patient is a Female of Child Bearing Age (10 -59 yrs old): Yes Hx Last Menstrual Period: 07/15/18 Patient : No Expected Date of Delivery:: 09/05/15 Family Medical History - Family History Mother Family History: Unknown Living Status: Unknown Hx Family Asthma: No Hx Family Diabetes: Yes - brother,cousin Physical Exam - Physical Exam General Appearance: Alert, Lethargic - slight, Well Developed Eye Exam: bilateral normal Ears, Nose, Throat: hearing grossly normal Neck: non-tender, full range of motion, supple, normal inspection Respiratory: chest non-tender, lungs clear, normal breath sounds, no respiratory distress, no accessory muscle use Cardiovascular/Chest: no edema, tachycardia Gastrointestinal/Abdominal: normal bowel sounds, non tender, soft, no organomegaly, no pulsatile mass Back Exam: normal inspection, no CVA tenderness Extremity: normal range of motion, non-tender, normal inspection Skin Exam: normal color, warm/dry Lymphatic: no adenopathy Progress - Progress Progress: 05/22/19 16:48 Case d/w Dr varela [facility] accepted the pt - Results/Orders Results/Orders: 05/22/19 15:32 Sodium Chloride 0.9% (Flush) [Saline Flush Syringe] 10 ml IV PRN PRN Sodium Chloride 0.9% 1000ML [Ns 1000 ml] 1,000 ml IVS ONCE EKG Assessment ONCE Pulse Oximetry Assessment DAILY 05/22/19 15:45 EKG STAT 05/22/19 15:49 ABG [Arterial Blood Gas] Stat 05/22/19 16:18 URINALYSIS Stat 05/22/19 16:40 Sodium Chloride 0.9% 1000ML [Ns 1000 ml] 1,000 ml IVS ONCE 05/23/19 09:00 Pulse Ox Daily Laboratory Results WBC 14.2 K/mm3 (4.8-10.8) H 05/22/19 15:57 RBC 5.11 M/mm3 (4.20-5.40) 05/22/19 15:57 Hgb 15.1 gm/dL (12.0-16.0) 05/22/19 15:57 Hct 47.4 % (36.0-47.0) H 05/22/19 15:57 MCV 92.8 fl (81.0-99.0) 05/22/19 15:57 MCH 29.7 pg (27.0-31.0) 05/22/19 15:57 MCHC 31.9 g/dL (33.0-37.0) L 05/22/19 15:57 RDW 13.4 % (11.5-14.5) 05/22/19 15:57 Plt Count 352 K/mm3 (130-400) 05/22/19 15:57 MPV 10.2 fl (7.40-10.4) 05/22/19 15:57 Absolute Neuts (auto) 11.80 K/uL (1.8-6.8) H 05/22/19 15:57 Absolute Lymphs (auto) 1.70 K/uL (1.0-3.4) 05/22/19 15:57 Absolute Monos (auto) 0.50 K/uL (0.2-0.8) 05/22/19 15:57 Absolute Eos (auto) 0.00 K/uL (0.0-0.4) 05/22/19 15:57 Absolute Basos (auto) 0.20 K/uL (0.0-0.1) H 05/22/19 15:57 Neutrophils % 82.9 % (42.0-78.0) H 05/22/19 15:57 Lymphocytes % 11.8 % (20.0-50.0) L 05/22/19 15:57 Monocytes % 3.6 % (2.0-9.0) 05/22/19 15:57 Eosinophils % 0.3 % (1.0-5.0) L 05/22/19 15:57 Basophils % 1.4 % (0.0-2.0) 05/22/19 15:57 Sodium 132 mmol/L (135-145) L 05/22/19 15:57 Potassium 3.7 mmol/L (3.6-5.0) 05/22/19 15:57 Chloride 95 mmol/L (101-111) L 05/22/19 15:57 Carbon Dioxide 12 mmol/L (21-31) L* 05/22/19 15:57 Anion Gap 28.7 (12-18) H 05/22/19 15:57 BUN 14 mg/dL (7-18) 05/22/19 15:57 Creatinine 1.04 mg/dL (0.6-1.3) 05/22/19 15:57 BUN/Creatinine Ratio 13.5 (10-20) 05/22/19 15:57 Random Glucose 455 mg/dL (70-105) H* 05/22/19 15:57 Serum Osmolality 284.8 mOsm/L (275-295) 05/22/19 15:57 Calcium 10.3 mg/dL (8.4-10.2) H 05/22/19 15:57 Total Bilirubin 1.8 mg/dL (0.2-1.0) H 05/22/19 15:57 AST 19 IU/L (10-42) 05/22/19 15:57 ALT 18 IU/L (10-60) 05/22/19 15:57 Alkaline Phosphatase 121 IU/L (42-121) 05/22/19 15:57 Serum Total Protein 8.5 gm/dL (6.4-8.2) H 05/22/19 15:57 Albumin 4.5 g/dl (3.2-5.5) 05/22/19 15:57 Globulin 4.0 gm/dL (2.3-3.5) H 05/22/19 15:57 Albumin/Globulin Ratio 1.1 (1.1-1.9) 05/22/19 15:57 Serum Ketones Moderate 05/22/19 15:57 - EKG/XRAY/CT EKG: Sinus, Tachy Departure - Departure Clinical Impression: DKA (diabetic ketoacidoses), Diabetes mellitus with ketoacidosis, Hyperglycemia, Metabolic disorder due to diabetes mellitus Time of Disposition: 16:46 Disposition: Transfer to Hospital Condition: Fair Departure Forms: ED Discharge - Pt. Copy, Patient Portal Self Enrollment Instructions: DI for Diabetes Type 1 -- Adult Home Medications: Ambulatory Orders Insulin Regular (Human) [Novolin R] 0 unit SUBCU AC #1 bottle 02/12/17 Tramadol HCl 50 mg PO TID PRN #10 tab 08/14/18
[2019-05-22 18:10] VITALS: BP 130/77; TEMP 98; O2SAT 97
== END 2019-05-22 17:50 | disposition short-term general hospital (02) ==
LOC: ER 15:30
DX: E11.10 Type 2 diabetes mellitus with ketoacidosis without coma (principal); E88.9 Metabolic disorder, unspecified; R11.2 Nausea with vomiting, unspecified; R01.1 Cardiac murmur, unspecified; E07.9 Disorder of thyroid, unspecified; Z79.4 Long term (current) use of insulin; Z88.6 Allergy status to analgesic agent; Z88.8 Allergy status to other drugs, medicaments and biological substances
CPT/HCPCS: 36415; 36600; 71045; 80053; 82009; 82803; 82805; 85025; 93005; J2405; J7030

== ENCOUNTER 2020-02-27 09:32 | Emergency (ER) | payer OTHER ==
[2020-02-27] MEDS ORDERED: ONDANSETRON INJ 4 MG/2 ML VIAL IV ONE (09:57)
[2020-02-27] MEDS ORDERED: ACETAMINOPHEN 325 MG TAB PO ONE (09:57)
[2020-02-27] MEDS ORDERED: SODIUM CHLORIDE 0.9% (FLUSH) 10 ML SYG IV PRN (09:57)
[2020-02-27] MEDS ORDERED: SODIUM CHLORIDE 0.9% 1000ML 1,000 ML IVS PRN (09:57)
--- NOTE | 2020-02-27 10:00 | ED.PDOC ---
History of Present Illness - General Chief Complaint: GI Problem Stated Complaint: N/V, T[place], Type I Diabetic Time Seen by Provider: 02/27/20 09:55 Source: patient, RN notes reviewed, Vital Signs reviewed Exam Limitations: no limitations - History of Present Illness Initial Comments: Patient is a 29-year-old female with past medical history of insulin-dependent diabetes who presents the ED for 3-day history of high blood sugar in the 400s, nausea and vomiting. States she thinks her insulin pump was not working so she exchanges the tubing yesterday and her blood sugars have improved since that time. She denies fever, dysuria or any upper respiratory symptoms. Last menstrual period was 3 weeks ago. Allergies/Adverse Reactions: Allergies Aspirin Allergy (Verified 02/09/17 12:07) Diphenhydramine [From Benadryl] Allergy (Verified 02/09/17 12:07) Home Medications: Ambulatory Orders Insulin Regular (Human) [Novolin R] 0 unit SUBCU AC #1 bottle 02/12/17 Tramadol HCl 50 mg PO TID PRN #10 tab 08/14/18 Ondansetron HCl [Zofran] 4 mg PO Q6HR PRN #15 tab 02/27/20 Review of Systems - Review of Systems Constitutional: Denies: chills, fever EENTM: Denies: ear pain, nose congestion Respiratory: Denies: cough, short of breath Cardiology: Denies: chest pain, palpitations, syncope Gastrointestinal/Abdominal: States: abdominal pain, nausea, vomiting. Denies: diarrhea Genitourinary: Denies: dysuria, frequency, hematuria Skin: Denies: rash All other Systems: Reviewed and Negative Past Medical History (General) - Patient Medical History Hx Seizures: No Hx Stroke: No Hx Dementia: No Hx Asthma: No Hx of COPD: No Hx Cardiac Disorders: Yes - heart murmur Hx Congestive Heart Failure: No Hx Pacemaker: No Hx Hypertension: No Hx Thyroid Disease: Yes Hx Diabetes: Yes Hx Gastroesophageal Reflux: No Hx Renal Disease: No Hx Cancer: No Hx of HIV: No Hx Hepatitis C: No Hx MRSA: No - Vaccination History Hx Tetanus, Diphtheria Vaccination: Yes - unkown year Hx Influenza Vaccination: No Hx Pneumococcal Vaccination: No - Social History Hx Tobacco Use: No Hx Chewing Tobacco Use: No Hx Alcohol Use: No Hx Substance Use: No Hx Substance Use Treatment: No Hx Depression: No Hx Physical Abuse: No Hx Emotional Abuse: No Hx Suspected Abuse: No - Female History Hx Last Menstrual Period: 07/15/18 Patient : No Expected Date of Delivery:: 09/05/15 Family Medical History - Family History Mother Family History: Unknown Living Status: Unknown Hx Family Asthma: No Hx Family Diabetes: Yes - brother,cousin Physical Exam - Physical Exam General Appearance: Alert, Comfortable, No apparent distress Neck: full range of motion, supple, normal inspection Respiratory: chest non-tender, lungs clear, normal breath sounds, no respiratory distress, no accessory muscle use Cardiovascular/Chest: regular rate, rhythm, no edema Gastrointestinal/Abdominal: soft, other - Mild TTP epigastric area. No guarding or rigidity Back Exam: no CVA tenderness, no vertebral tenderness Extremity: normal range of motion, non-tender, normal inspection Neurologic: no motor/sensory deficits, alert, normal mood/affect Skin Exam: normal color, warm/dry Progress - Progress Progress: 02/27/20 12:03 Patient has history of insulin-dependent diabetes presents to ED with 2-day history of nausea, vomiting and elevated blood sugars. Blood glucose here is in the 150s with normal anion gap and CO2. No sign of DKA at this time. She feels significantly improved after IV fluids and is tolerating p.o. fluids well. She feels comfortable going home and follow-up with her PCP in 1 to 2 days for continued evaluation. Strict return precautions given. - Results/Orders Results/Orders: 02/27/20 09:57 IV Care:Saline Lock per Protoc QSHIFT Sodium Chloride 0.9% (Flush) [Saline Flush Syringe] 10 ml IV PRN PRN Sodium Chloride 0.9% 1000ML [Ns 1000 ml] 1,000 ml IVS ONCE 02/27/20 10:00 ACETEST(KETONES),SERUM/PLASMA Stat COMPLETE METABOLIC PROFILE Stat 02/27/20 10:10 EKG .ONCE 02/28/20 09:00 Pulse Ox Daily Laboratory Results - last 24 hr 02/27/20 02/27/20 02/27/20 09:50 10:00 10:00 WBC 11.1 H RBC 4.68 Hgb 14.1 Hct 42.1 MCV 89.8 MCH 30.2 MCHC 33.6 RDW 12.6 Plt Count 273 MPV 10.0 Absolute Neuts (auto) 9.20 H Absolute Lymphs (auto) 1.40 Absolute Monos (auto) 0.50 Absolute Eos (auto) 0.00 Absolute Basos (auto) 0.10 Neutrophils % 82.9 H Lymphocytes % 12.3 L Monocytes % 4.1 Eosinophils % 0.2 L Basophils % 0.5 Sodium 136 Potassium 4.3 Chloride 100 L Carbon Dioxide 28 Anion Gap 12.3 BUN 9 Creatinine 0.65 BUN/Creatinine Ratio 13.8 POC Glucose 133 H Random Glucose 155 H Serum Osmolality 273.8 L Calcium 8.8 Total Bilirubin 0.6 AST 13 ALT 15 Alkaline Phosphatase 79 Serum Total Protein 7.6 Albumin 3.8 Globulin 3.8 H Albumin/Globulin Ratio 1.0 L Serum HCG, Qual Urine Color Urine Appearance Urine pH Ur Specific Hannah Urine Protein Urine Glucose (UA) Urine Ketones Urine Blood Urine Nitrite Urine Bilirubin Urine Urobilinogen Ur Leukocyte Esterase Urine RBC Urine WBC Ur Epithelial Cells Amorphous Sediment Urine Bacteria 02/27/20 02/27/20 10:00 11:15 WBC RBC Hgb Hct MCV MCH MCHC RDW Plt Count MPV Absolute Neuts (auto) Absolute Lymphs (auto) Absolute Monos (auto) Absolute Eos (auto) Absolute Basos (auto) Neutrophils % Lymphocytes % Monocytes % Eosinophils % Basophils % Sodium Potassium Chloride Carbon Dioxide Anion Gap BUN Creatinine BUN/Creatinine Ratio POC Glucose Random Glucose Serum Osmolality Calcium Total Bilirubin AST ALT Alkaline Phosphatase Serum Total Protein Albumin Globulin Albumin/Globulin Ratio Serum HCG, Qual Negative Urine Color Yellow Urine Appearance Sl cloudy Urine pH 8.5 H Ur Specific Hannah 1.020 Urine Protein Negative Urine Glucose (UA) Negative Urine Ketones Negative Urine Blood Negative Urine Nitrite Negative Urine Bilirubin Negative Urine Urobilinogen 0.2 Ur Leukocyte Esterase Negative Urine RBC 0-1 Urine WBC 3-5 H Ur Epithelial Cells 20-30 Amorphous Sediment 1+ Urine Bacteria 1+ Departure - Departure Clinical Impression: Hyperglycemia due to type 1 diabetes mellitus Vomiting Qualifiers: Vomiting type: unspecified Vomiting Intractability: non-intractable Nausea presence: with nausea Qualified Code(s): R11.2 - Nausea with vomiting, unspecified Time of Disposition: 12:05 Disposition: Discharge to Home or Self Care Condition: Good Departure Forms: ED Discharge - Pt. Copy, Patient Portal Self Enrollment Diet: bland diet Activity: increase activity as tolerated Referrals: FABRICE SHAW [Primary Care Provider] - 1-2 Days Prescriptions: Ondansetron HCl [Zofran] 4 mg PO Q6HR PRN #15 tab PRN Reason: Nausea Home Medications: Ambulatory Orders Insulin Regular (Human) [Novolin R] 0 unit SUBCU AC #1 bottle 02/12/17 Tramadol HCl 50 mg PO TID PRN #10 tab 08/14/18 Ondansetron HCl [Zofran] 4 mg PO Q6HR PRN #15 tab 02/27/20
[2020-02-27 12:18] VITALS: BP 125/78; TEMP 98.2; O2SAT 100
== END 2020-02-27 12:13 | disposition home or self-care (01) ==
LOC: ER 09:32
DX: E10.65 Type 1 diabetes mellitus with hyperglycemia (principal); R12 Heartburn; R01.1 Cardiac murmur, unspecified; E07.9 Disorder of thyroid, unspecified; Z96.41 Presence of insulin pump (external) (internal); Z79.4 Long term (current) use of insulin; Z79.899 Other long term (current) drug therapy
CPT/HCPCS: 36415; 36416; 80053; 81001; 82948; 84703; 85025; 93005; J2405; J7030

== ENCOUNTER → 2020-05-14 | Outpatient (CLI) | payer OTHER | LOC: YCFC.O 10:03 | PROVIDERS: ATTEND Family Medicine | DX: E78.5 Hyperlipidemia, unspecified (principal); E03.9 Hypothyroidism, unspecified ==

== ENCOUNTER → 2020-07-13 | Outpatient (CLI) | payer OTHER ==
--- NOTE | 2020-07-14 10:20 | US ---
EXAM DESCRIPTION: Venous,Lower Extremity RT: ULTRASOUND. CLINICAL HISTORY: LOC EDEMA COMPARISON: None Available. TECHNIQUE: Chambers-scale and doppler sonographic evaluation of the deep venous system of the right lower extremity. FINDINGS: Doppler evaluation shows normal color flow and normal phasicity and augmentation of the right common femoral vein, right femoral vein, popliteal vein, right greater saphenous vein, junction with the CFV. Also normal color flow and normal phasicity and augmentation of the right peroneal, and posterior tibial vein. The right lower extremity deep veins were completely compressible; normal occlusion with transducer pressure. Chambers-scale survey showed no echogenic thrombus within these veins. IMPRESSION: 1. Duplex ultrasound evaluation of the right lower extremity deep venous system showing no evidence of thrombosis. Electronically signed by: Cedrick Dalton MD 07/14/2020 10:18 AM [facility]
== END ==
LOC: US 09:11
PROVIDERS: ATTEND Internal Medicine Endocrinology, Diabetes & Metabolism
DX: R60.0 Localized edema (principal)